=== PATIENT | female | born 1940 | race Caucasian/White ===

== ENCOUNTER 2017-11-11 11:44 | Emergency (ER) | payer MEDICARE ==
--- NOTE | 2017-11-11 12:44 | ED Physician Documentation ---
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 HEENT: Tonsil/Adenoidectomy - Present Medications Home Medications: Ambulatory Orders Medication Instructions Recorded Confirmed Acetaminophen [Tylenol] 2 tab PO DAILY 10/20/15 05/07/16 Levothyroxine [Synthroid] 1 tab PO DAILY 10/20/15 05/07/16 Aspirin 1 tab PO DAILY 05/07/16 05/07/16 Loratadine [Allergy Relief] 10 mg PO DAILY 11/11/17 - Allergies Allergies/Adverse Reactions: Allergies Allergy/AdvReac Type Severity Reaction Status Date / Time ciprofloxacin [From Cipro] Allergy Anaphylaxis Verified 11/11/17 11:53 ciprofloxacin HCl * Allergy Anaphylaxis Verified 11/11/17 11:53 [From Cipro] guaifenesin [From Robitussin] Allergy Hallucinati Verified 11/11/17 11:53 ons levofloxacin [From Levaquin] Allergy Anaphylaxis Verified 11/11/17 11:53 Penicillins Allergy Edema Verified 11/11/17 11:53 procaine HCl * Allergy Unknown Verified 11/11/17 11:53 [From Novocain] vitamin E (d-alpha Allergy Unknown Verified 11/11/17 11:53 tocopherol) [vitamin E] - Social History Does the pt smoke?: No Smoking Status: Never smoker Does the pt drink ETOH?: No Does the pt have substance abuse?: No - Immunizations Immunizations are current?: No Results - Vitals Vitals: Vital Signs - 24 hr 11/11/17 11/11/17 11:47 12:59 Temperature 36.2 C L 36.4 C L Heart Rate 71 72 Respiratory 16 12 Rate Blood Pressure 155/55 H 125/63 O2 Saturation 100 97 Oxygen O2 Source Room air - Labs Labs: Laboratory Tests 11/11/17 11/11/17 13:53 14:00 WBC 9.0 RBC 4.17 L Hgb 13.1 Hct 38.9 MCV 93.4 MCH 31.5 H MCHC 33.7 RDW 12.8 Plt Count 418 MPV 7.6 L Neut # (Auto) 6.6 Lymph # (Auto) 1.1 L [place] # (Auto) 0.9 Eos # (Auto) 0.2 Baso # (Auto) 0.1 Absolute Nucleated RBC 0.00 Nucleated RBC % 0.0 Lactic Acid 1.0
[2017-11-11] MEDS ORDERED: SODIUM CHLORIDE 0.9% 500 ML IV ONE (13:34)
[2017-11-11] MEDS ORDERED: ONDANSETRON 4 MG/2 ML VIAL IVP STA (13:34)
[2017-11-11] MEDS ORDERED: MORPHINE 10 MG/ML VIAL IVP STA (13:37)
[2017-11-11 14:01] LABS: BASOPHILS # (AUTO) 0.1 10^3/uL (0.0-0.1); BASOPHILS % (AUTO) 1.1 %; EOSINOPHILS # (AUTO) 0.2 10^3/uL (0.0-0.7); EOSINOPHILS % (AUTO) 2.3 %; HGB - HEMOGLOBIN 13.1 g/dL (12.0-16.0); LYMPHOCYTES # (AUTO) 1.1 10^3/uL (1.5-3.5); LYMPHOCYTES % (AUTO) 12.8 %; MEAN CORPUSCULAR HEMOGLOBIN 31.5 pg (27.0-31.0); MEAN CORPUSCULAR HGB CONC 33.7 g/dL (32.0-36.0); MEAN CORPUSCULAR VOLUME 93.4 fL (81.0-99.0); MEAN PLATELET VOLUME 7.6 fL (7.9-10.8); MONOCYTES # (AUTO) 0.9 10^3/uL (0.0-1.0); MONOCYTES % (AUTO) 9.8 %; NEUTROPHILS # (AUTO) 6.6 10^3/uL (1.5-6.6); PLT - PLATELET COUNT 418 10^3/uL (130-450); RED BLOOD COUNT 4.17 10^6/uL (4.20-5.40); RED CELL DISTRIBUTION WIDTH 12.8 % (12.0-15.0)
[2017-11-11] MEDS ORDERED: IOPAMIDOL-300 100 ML VIAL ONE (14:01)
[2017-11-11] MEDS ORDERED: IOPAMIDOL-300 100 ML VIAL IVP ONE (14:14)
--- NOTE | 2017-11-11 14:24 | ED Physician Documentation ---
PD HPI ABD PAIN - Stated complaint Stated Complaint: BACK PX/HEADACHE/BLURRY VISION - Chief complaint Chief Complaint: Back Pain - History obtained from History obtained from: Patient - History of Present Illness Timing - onset: How many days ago (several) Timing - duration: Days (several) Timing - details: Gradual onset, Still present, Waxing and waning Quality: Cramping, Aching, Pain Location: RUQ, RLQ Radiation: Right flank Improved by: No: Eating, Vomiting Worsened by: Eating Associated symptoms: Nausea. No: Fever, Vomiting, Diarrhea Similar symptoms before: Has not had sx before Recently seen: Not recently seen Review of Systems Constitutional: denies: Fever, Chills Nose: denies: Rhinorrhea / runny nose, Congestion Throat: denies: Sore throat Cardiac: denies: Chest pain / pressure Respiratory: denies: Cough GI: reports: Abdominal Pain (right sided), Nausea. denies: Vomiting, Constipation, Diarrhea, Bloody / black stool : reports: Frequency. denies: Dysuria Skin: denies: Rash Neurologic: reports: Headache. 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 HEENT: Tonsil/Adenoidectomy - Present Medications Home Medications: Ambulatory Orders Medication Instructions Recorded Confirmed Acetaminophen [Tylenol] 2 tab PO DAILY 10/20/15 05/07/16 Levothyroxine [Synthroid] 1 tab PO DAILY 10/20/15 05/07/16 Aspirin 1 tab PO DAILY 05/07/16 05/07/16 Loratadine [Allergy Relief] 10 mg PO DAILY 11/11/17 - Allergies Allergies/Adverse Reactions: Allergies Allergy/AdvReac Type Severity Reaction Status Date / Time ciprofloxacin [From Cipro] Allergy Anaphylaxis Verified 11/11/17 11:53 ciprofloxacin HCl * Allergy Anaphylaxis Verified 11/11/17 11:53 [From Cipro] guaifenesin [From Robitussin] Allergy Hallucinati Verified 11/11/17 11:53 ons levofloxacin [From Levaquin] Allergy Anaphylaxis Verified 11/11/17 11:53 Penicillins Allergy Edema Verified 11/11/17 11:53 procaine HCl * Allergy Unknown Verified 11/11/17 11:53 [From Novocain] vitamin E (d-alpha Allergy Unknown Verified 11/11/17 11:53 tocopherol) [vitamin E] - Social History Does the pt smoke?: No Smoking Status: Never smoker Does the pt drink ETOH?: No Does the pt have substance abuse?: No - Family History Family history: reports: Non contributory. denies: Aortic aneursym, Aortic dissection - Immunizations Immunizations are current?: No Immunizations: TDAP >10years/unknown - POLST Patient has POLST: No PD ED PE NORMAL - Vitals Vital signs reviewed: Yes - General General: Alert and oriented X 3, No acute distress, Well developed/nourished - HEENT HEENT: Pharynx benign - Neck Neck: Supple, no meningeal sign, No adenopathy - Cardiac Cardiac: RRR, No murmur - Respiratory Respiratory: Clear bilaterally - Abdomen Abdomen: Normal bowel sounds, Soft, Non distended, No organomegaly, Other ( tender right sided mid abdomen with local guarding. No percussion nor rebound tenderness. ) - Female Female : Deferred - Rectal Rectal: Deferred - Back Back: No CVA TTP - Derm Derm: Normal color - Extremities Extremities: No tenderness to palpate, Normal ROM s pain, No edema, No calf tenderness / cord - Neuro Neuro: Alert and oriented X 3, No motor deficit, Normal speech Eye Opening: Spontaneous Motor: Obeys Commands Verbal: Oriented GCS Score: 15 - Psych Psych: Normal mood, Normal affect Results - Vitals Vitals: Oxygen O2 Source Room air - Labs Labs: Laboratory Tests 11/11/17 11/11/17 11/11/17 13:53 14:00 14:28 WBC 9.0 RBC 4.17 L Hgb 13.1 Hct 38.9 MCV 93.4 MCH 31.5 H MCHC 33.7 RDW 12.8 Plt Count 418 MPV 7.6 L Neut # (Auto) 6.6 Lymph # (Auto) 1.1 L [place] # (Auto) 0.9 Eos # (Auto) 0.2 Baso # (Auto) 0.1 Absolute Nucleated RBC 0.00 Nucleated RBC % 0.0 Sodium 138 Potassium 3.9 Chloride 103 Carbon Dioxide 27 Anion Gap 8.0 BUN 19 Creatinine 0.6 Estimated GFR (MDRD) 96 Glucose 84 Lactic Acid 1.0 Calcium 9.3 Magnesium 2.1 Total Bilirubin 0.7 AST 21 ALT 17 Alkaline Phosphatase 57 Total Protein 7.0 Albumin 4.2 Globulin 2.8 Albumin/Globulin Ratio 1.5 Lipase 24 Urine Color Urine Clarity Urine pH Ur Specific [place] Urine Protein Urine Glucose (UA) Urine Ketones Urine Occult Blood Urine Nitrite Urine Bilirubin Urine Urobilinogen Ur Leukocyte Esterase Ur Microscopic Review Urine Culture Comments 11/11/17 14:45 WBC RBC Hgb Hct MCV MCH MCHC RDW Plt Count MPV Neut # (Auto) Lymph # (Auto) [place] # (Auto) Eos # (Auto) Baso # (Auto) Absolute Nucleated RBC Nucleated RBC % Sodium Potassium Chloride Carbon Dioxide Anion Gap BUN Creatinine Estimated GFR (MDRD) Glucose Lactic Acid Calcium Magnesium Total Bilirubin AST ALT Alkaline Phosphatase Total Protein Albumin Globulin Albumin/Globulin Ratio Lipase Urine Color YELLOW Urine Clarity CLEAR Urine pH 7.0 Ur Specific [place] 1.010 Urine Protein NEGATIVE Urine Glucose (UA) NEGATIVE Urine Ketones NEGATIVE Urine Occult Blood NEGATIVE Urine Nitrite NEGATIVE Urine Bilirubin NEGATIVE Urine Urobilinogen 0.2 (NORMAL) Ur Leukocyte Esterase NEGATIVE Ur Microscopic Review NOT INDICATED Urine Culture Comments NOT INDICATED - Rads (name of study) abd/pelvic CT Radiology: Prelim report reviewed (small hiatal hernia; no signficiant abnormal process. ) PD MEDICAL DECISION MAKING - ED course Complexity details: reviewed results, considered differential (s/p appy, so consider cholecystitis, right diverticulitis, kidney stone or infection. ), d/w patient Departure - Departure Disposition: 01 Home, Self Care Clinical Impression: Right sided abdominal pain Condition: Stable Record reviewed to determine appropriate education?: Yes Instructions: ED Abdominal Pain Unkn Cause Follow-Up: Diana Brantley MD [Primary Care Provider] - Comments: There are no signs of significant causes for your pain. It could be muscular from the lifting you have been doing. You may have stretched some adhesions. At this point I would suggest treating with some naproxen or ibuprofen twice daily and add Tylenol 500 mg 4 times a day if needed for pain. Also use a stool softener such as docusate 100 mg daily for the next week. Recheck if not improved over the next few days. Return if you have new symptoms develop such as fever, vomiting, bloody stool, rash, other concerns. Discharge Date/Time: 11/11/17 16:30
[2017-11-11 14:44] LABS: ALBUMIN 4.2 g/dL (3.2-5.5); ALBUMIN/GLOBULIN RATIO 1.5 (1.0-2.2); BILIRUBIN,TOTAL 0.7 mg/dL (0.2-1.0); CALCIUM 9.3 mg/dL (8.5-10.3); CREATININE 0.6 mg/dL (0.4-1.0); MAGNESIUM 2.1 mg/dL (1.7-2.8)
[2017-11-11 14:58] LABS: BILIRUBIN,URINE NEGATIVE (NEGATIVE); GLUCOSE, URINE (UA) NEGATIVE (NEGATIVE); KETONES,URINE (UA) NEGATIVE (NEGATIVE); LEUKOCYTE ESTERASE, URINE NEGATIVE (NEGATIVE); NITRITE,URINE NEGATIVE (NEGATIVE); OCCULT BLOOD,URINE NEGATIVE (NEGATIVE); PROTEIN,URINE NEGATIVE (NEGATIVE); UROBILINOGEN,URINE 0.2 (NORMAL) E.U./dL (NORMAL)
[2017-11-11 15:15] LABS: CLARITY,URINE CLEAR (CLEAR)
--- NOTE | 2017-11-11 15:31 | CT Report ---
EXAM: CT ABDOMEN AND PELVIS EXAM DATE: 11/11/2017 03:20 PM. CLINICAL HISTORY: Right-sided abdominal pain. COMPARISONS: Previous exam of 10/20/2015. TECHNIQUE: Routine helical CT imaging was performed through the abdomen and pelvis. IV contrast: 100 cc of Isovue-300. Enteric contrast: No. Reconstructions: Coronal and sagittal. In accordance with CT protocol optimization, one or more of the following dose reduction techniques w ere utilized for this exam: automated exposure control, adjustment of mA and/or KV based on patient s ize, or use of iterative reconstructive technique. FINDINGS: Lung Bases: Bibasilar scarring versus atelectatic changes present. Stable small hiatal hernia present . Liver: Normal. No masses. Gallbladder/Bile Ducts: Unremarkable. Spleen: Normal. Pancreas: Normal. Adrenal Glands: Normal. Kidneys: Normal. No masses or hydronephrosis. Peritoneal Cavity/Bowel: Normal. No free fluid, free air or adenopathy. No masses or acute inflammato ry process. Appendix not well seen. Pelvic Organs: Uterus and ovaries are surgically absent. Urinary bladder grossly unremarkable. Vasculature: Calcified atherosclerotic changes seen, without evidence of aneurysm. Bones: Mild bony degenerative changes seen, with osteopenia. Other: None. IMPRESSION: Stable small hiatal hernia with bibasilar scarring at the lung bases, otherwise unremarka ble exam. [facility] Referring Provider Line: [phone] SITE ID: [id number]
[2017-11-11 15:35] VITALS: BP 128/58
[2017-11-11] MEDS ORDERED: KETOROLAC 60 MG/2 ML VIAL IVP STA (16:02)
== END 2017-11-11 16:30 | disposition home or self-care (01) ==
LOC: ED 11:44
DX: R10.31 Right lower quadrant pain (principal); R51 Headache; H53.8 Other visual disturbances; E03.9 Hypothyroidism, unspecified; K21.9 Gastro-esophageal reflux disease without esophagitis; Z79.82 Long term (current) use of aspirin
CPT/HCPCS: 36415; 74177; 80053; 81003; 83605; 83690; 83735; 85025; 96361; 96374; 96375; 99283; Q9967; 81001; 87086

== ENCOUNTER 2018-07-25 22:09 | Emergency (ER) | payer MEDICARE ==
--- NOTE | 2018-07-25 23:17 | ED Physician Documentation ---
PD HPI ABD PAIN - Stated complaint Stated Complaint: ABD PX - Chief complaint Chief Complaint: Abd Pain - History obtained from History obtained from: Patient - History of Present Illness Timing - onset: How many days ago (2) Timing - details: Intermittant Pain level now: 7 Quality: Pain Location: RUQ, Epigastric Improved by: Laying still Worsened by: Moving. No: Eating Associated symptoms: No: Fever, Nausea, Vomiting Similar symptoms before: Has not had sx before Recently seen: Not recently seen - Additional information Additional information: c/o RUQ and epigastric pain past 2-3 nights but worse tonight, described as "jabbing". Also c/o several weeks of right shoulder pain without injury, worse with movement Review of Systems Constitutional: denies: Fever, Chills, Sweats Cardiac: reports: Reviewed and negative Respiratory: reports: Reviewed and negative GI: reports: Abdominal Pain. 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 HEENT: Tonsil/Adenoidectomy - Present Medications Home Medications: Ambulatory Orders Medication Instructions Recorded Confirmed Acetaminophen [Tylenol] 2 tab PO DAILY 10/20/15 05/07/16 Levothyroxine [Synthroid] 1 tab PO DAILY 10/20/15 05/07/16 Aspirin 1 tab PO DAILY 05/07/16 05/07/16 Loratadine [Allergy Relief] 10 mg PO DAILY 11/11/17 - Allergies Allergies/Adverse Reactions: Allergies Allergy/AdvReac Type Severity Reaction Status Date / Time ciprofloxacin [From Cipro] Allergy Anaphylaxis Verified 11/11/17 11:53 ciprofloxacin HCl * Allergy Anaphylaxis Verified 11/11/17 11:53 [From Cipro] guaifenesin [From Robitussin] Allergy Hallucinati Verified 11/11/17 11:53 ons levofloxacin [From Levaquin] Allergy Anaphylaxis Verified 11/11/17 11:53 Penicillins Allergy Edema Verified 11/11/17 11:53 procaine HCl * Allergy Unknown Verified 11/11/17 11:53 [From Novocain] vitamin E (d-alpha Allergy Unknown Verified 11/11/17 11:53 tocopherol) [vitamin E] - Social History Does the pt smoke?: No Smoking Status: Never smoker Does the pt drink ETOH?: No Does the pt have substance abuse?: No - Immunizations Immunizations are current?: No Immunizations: TDAP >10years/unknown - POLST Patient has POLST: No PD ED PE NORMAL - Vitals Vital signs reviewed: Yes - General General: Alert and oriented X 3, No acute distress, Well developed/nourished - Cardiac Cardiac: RRR, No murmur - Respiratory Respiratory: No respiratory distress, Clear bilaterally - Abdomen Abdomen: Soft, Non distended, Other (mild tenderness in RUQ and epigastrium without rebound or guarding) - Derm Derm: Normal color, Warm and dry, No rash - Extremities Extremities: No deformity, No tenderness to palpate, Normal ROM s pain (right shoulder has FROM but increased pain with extremes of abduction, rotation), No edema Results - Vitals Vitals: Vital Signs - 24 hr 07/25/18 07/26/18 22:15 02:57 Temperature 37.3 C 36.4 C L Heart Rate 77 71 Respiratory 18 16 Rate Blood Pressure 133/57 H 108/87 H O2 Saturation 97 95 Oxygen O2 Source Room air - Labs Labs: Laboratory Tests 07/25/18 07/25/18 23:55 23:55 WBC 7.8 RBC 4.22 Hgb 13.6 Hct 39.9 MCV 94.6 MCH 32.2 H MCHC 34.0 RDW 12.5 Plt Count 448 MPV 7.4 L Neut # (Auto) 5.2 Lymph # (Auto) 1.3 L [place] # (Auto) 0.9 Eos # (Auto) 0.4 Baso # (Auto) 0.0 Absolute Nucleated RBC 0.00 Nucleated RBC % 0.1 Sodium 137 Potassium 3.5 Chloride 100 L Carbon Dioxide 30 Anion Gap 7.0 BUN 13 Creatinine 0.6 Estimated GFR (MDRD) 96 Glucose 99 Calcium 10.1 Total Bilirubin 0.7 AST 23 ALT 19 Alkaline Phosphatase 62 Total Protein 7.3 Albumin 4.5 Globulin 2.8 Albumin/Globulin Ratio 1.6 Lipase 41 - Rads (name of study) RUQ US Radiology: Prelim report reviewed, See rad report right shoulder xrays Radiology: Prelim report reviewed, See rad report PD MEDICAL DECISION MAKING - ED course Complexity details: reviewed results, re-evaluated patient, considered differential, d/w patient ED course: unremarkable blood tests and RUQ US. right shoulder xray s/o calcific tendinitis. Patient is in NAD on reevaluation, results discussed and patient is comfortable with d/c home, return if worse. Instructed to contact PMD to discuss her right shoulder pain as well as consideration of further testing for her abdominal pain. Departure - Departure Disposition: 01 Home, Self Care Clinical Impression: Calcific tendinitis of right shoulder Abdominal pain Qualifiers: Abdominal location: right upper quadrant Qualified Code(s): R10.11 - Right upper quadrant pain Condition: Good Instructions: ED Abdominal Pain Unkn Cause, ED Tendinitis Calcific Follow-Up: Diana Brantley MD [Primary Care Provider] - Discharge Date/Time: 07/26/18 03:48
[2018-07-26 00:12] LABS: BASOPHILS % (AUTO) 0.5 %; EOSINOPHILS # (AUTO) 0.4 10^3/uL (0.0-0.7); EOSINOPHILS % (AUTO) 5.7 %; HGB - HEMOGLOBIN 13.6 g/dL (12.0-16.0); LYMPHOCYTES # (AUTO) 1.3 10^3/uL (1.5-3.5); LYMPHOCYTES % (AUTO) 16.5 %; MEAN CORPUSCULAR HEMOGLOBIN 32.2 pg (27.0-31.0); MEAN CORPUSCULAR VOLUME 94.6 fL (81.0-99.0); MEAN PLATELET VOLUME 7.4 fL (7.9-10.8); MONOCYTES # (AUTO) 0.9 10^3/uL (0.0-1.0); MONOCYTES % (AUTO) 11.1 %; NEUTROPHILS # (AUTO) 5.2 10^3/uL (1.5-6.6); NEUTROPHILS % (AUTO) 66.2 %; PLT - PLATELET COUNT 448 10^3/uL (130-450); RED BLOOD COUNT 4.22 10^6/uL (4.20-5.40); RED CELL DISTRIBUTION WIDTH 12.5 % (12.0-15.0); WHITE BLOOD COUNT 7.8 x10^3/uL (4.8-10.8)
[2018-07-26 00:24] LABS: ALBUMIN 4.5 g/dL (3.2-5.5); ALBUMIN/GLOBULIN RATIO 1.6 (1.0-2.2); BILIRUBIN,TOTAL 0.7 mg/dL (0.2-1.0); CALCIUM 10.1 mg/dL (8.5-10.3); CREATININE 0.6 mg/dL (0.4-1.0); TOTAL PROTEIN 7.3 g/dL (6.7-8.2)
--- NOTE | 2018-07-26 01:36 | Ultrasound Report ---
Reason: abd. pain Procedure Date: 07/26/2018 Accession Number: [id number] / [id number] Procedure: US - Abdomen Limited CPT Code: FULL RESULT: EXAM: ABDOMEN ULTRASOUND LIMITED, RUQ EXAM DATE: 07/26/2018 01:10 AM. CLINICAL HISTORY: Abd. pain. COMPARISON: None. TECHNIQUE: Real-time scanning was performed with static images obtained. FINDINGS: Liver: Liver parenchyma is heterogeneous and there is increased echogenicity compatible with fatty infiltration. 14.2 cm. Main portal vein flow: Hepatopetal. Gallbladder: There are no discernible gallstones. Gallbladder wall measures 1.3 mm. There is some tenderness over the gallbladder. No pericholecystic fluid. Biliary System: CBD measures 4.1 mm. No intrahepatic or extrahepatic ductal dilatation. Other: Right kidney measures 9.3 cm. IMPRESSION: No evidence for cholelithiasis. [facility]
--- NOTE | 2018-07-26 02:03 | XRAY Report ---
Reason: pain, tenderness Procedure Date: 07/26/2018 Accession Number: [id number] / [id number] Procedure: XR - Shoulder 3 View RT CPT Code: FULL RESULT: EXAM: RIGHT SHOULDER RADIOGRAPHY EXAM DATE: 07/26/2018 01:39 AM. CLINICAL HISTORY: Pain, tenderness. COMPARISON: SHOULDER 3 VIEW BILAT 04/12/2017 1:55 PM. TECHNIQUE: 3 views. FINDINGS: Bones: Normal. No fracture or bone lesion. Joints: There is some degenerative changes at the glenohumeral joint and the AC joint. Soft tissues: There is an aggregation of soft tissue calcifications in the region of the supraspinatus tendon compatible with calcific tendinitis. IMPRESSION: 1. Early degenerative changes at the glenohumeral joint and AC joint. 2. Supraspinatus calcific tendinitis. [facility]
[2018-07-26 02:58] VITALS: BP 108/87
== END 2018-07-26 03:48 | disposition home or self-care (01) ==
LOC: ED 22:09
DX: M75.31 Calcific tendinitis of right shoulder (principal); R10.11 Right upper quadrant pain; E03.9 Hypothyroidism, unspecified; Z79.82 Long term (current) use of aspirin
CPT/HCPCS: 36415; 76705; 80053; 83690; 85025; 99283

== ENCOUNTER 2018-09-16 10:49 | Emergency (ER) | payer MEDICARE ==
[2018-09-16] MEDS ORDERED: IOVERSOL 320 100 ML VIAL IVP ONE ×3 (10:50→16:59)
[2018-09-16] MEDS ORDERED: KETOROLAC 30 MG/ML VIAL IVP STA (13:08)
--- NOTE | 2018-09-16 13:11 | ED Physician Documentation ---
PD HPI HEENT - Stated complaint Stated Complaint: JAW PX - Chief complaint Chief Complaint: Heent - History obtained from History obtained from: Patient - History of Present Illness Timing - onset: Other (For the last several months she has had intermittent left-sided jaw and facial pain. It is fleeting. For the last day she has had impressive more constant pain with facial swelling on the left. She is unable to eat due to the pain. She took Tylenol at home which helped slightly. She denies fevers. 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 Psych: Anxiety Musculoskeletal: Chronic back pain Derm: None - Past Surgical History Past Surgical History: Yes 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, 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 HEENT: Tonsil/Adenoidectomy - Present Medications Home Medications: Ambulatory Orders Medication Instructions Recorded Confirmed Acetaminophen [Tylenol] 2 tab PO DAILY 10/20/15 05/07/16 Levothyroxine [Synthroid] 1 tab PO DAILY 10/20/15 05/07/16 RX: Aspirin 1 tab PO DAILY 05/07/16 05/07/16 RX: Loratadine [Allergy Relief] 10 mg PO DAILY 11/11/17 RX: Clindamycin HCl [Clindamycin 300 mg PO Q6H #40 capsule 09/16/18 300MG CAP] - Allergies Allergies/Adverse Reactions: Allergies Allergy/AdvReac Type Severity Reaction Status Date / Time ciprofloxacin [From Cipro] Allergy Anaphylaxis Verified 09/16/18 11:00 ciprofloxacin HCl * Allergy Anaphylaxis Verified 09/16/18 11:00 [From Cipro] guaifenesin [From Robitussin] Allergy Hallucinati Verified 09/16/18 11:00 ons levofloxacin [From Levaquin] Allergy Anaphylaxis Verified 09/16/18 11:00 Penicillins Allergy Edema Verified 09/16/18 11:00 procaine HCl * Allergy Unknown Verified 09/16/18 11:00 [From Novocain] vitamin E (d-alpha Allergy Unknown Verified 09/16/18 11:00 tocopherol) [vitamin E] - Social History Does the pt smoke?: No Smoking Status: Never smoker Does the pt drink ETOH?: No Does the pt have substance abuse?: No - Family History Family history: reports: Non contributory - Immunizations Immunizations are current?: No Immunizations: TDAP >10years/unknown - POLST Patient has POLST: No PD ED PE NORMAL - Vitals Vital signs reviewed: Yes - General General: Alert and oriented X 3, No acute distress - HEENT HEENT: PERRL, EOMI, Ears normal, Other (She has impressive facial swelling that seems to be located mostly over the left parotid but comes into the left infra- auricular and preauricular areas and down over the angle of the jaw. She has some submental tenderness but no obvious swelling there. There is no sublingual edema, and I do not appreciate any foreign bodies or lesions in the salivary gland. She is edentulous. She has mild trismus.) - Neck Neck: Supple, no meningeal sign, No bony TTP - Cardiac Cardiac: RRR, No murmur - Respiratory Respiratory: No respiratory distress, Clear bilaterally - Abdomen Abdomen: Non tender - Back Back: No CVA TTP, No spinal TTP - Derm Derm: Normal color, Warm and dry - Extremities Extremities: No edema, No calf tenderness / cord - Neuro Neuro: Alert and oriented X 3, Normal speech - Psych Psych: Normal mood, Normal affect Results - Vitals Vitals: Vital Signs - 24 hr 09/16/18 09/16/18 09/16/18 10:56 12:56 15:44 Temperature 37.0 C 37.3 C 36.6 C Heart Rate 80 73 98 Respiratory 14 16 16 Rate Blood Pressure 134/81 H 121/50 L 126/56 L O2 Saturation 98 98 98 Oxygen O2 Source Room air - Labs Labs: Laboratory Tests 09/16/18 09/16/18 14:05 14:05 WBC 16.3 H RBC 4.18 L Hgb 12.9 Hct 38.8 MCV 92.8 MCH 30.9 MCHC 33.3 RDW 12.9 Plt Count 392 MPV 7.9 Neut # (Auto) 14.0 H Lymph # (Auto) 0.9 L [place] # (Auto) 1.2 H Eos # (Auto) 0.1 Baso # (Auto) 0.1 Absolute Nucleated RBC 0.00 Nucleated RBC % 0.0 Sodium 135 Potassium 3.6 Chloride 97 L Carbon Dioxide 27 Anion Gap 11.0 BUN 12 Creatinine 0.6 Estimated GFR (MDRD) 96 Glucose 97 Calcium 9.7 Total Bilirubin 1.3 H AST 19 ALT 14 Alkaline Phosphatase 50 Total Protein 7.1 Albumin 4.3 Globulin 2.8 Albumin/Globulin Ratio 1.5 Lipase 20 L - Rads (name of study) CT Face Radiology: EMP read contemporaneously (Enlargement and inflammatory reaction of the left parotid gland and to assess lesser extent submandibular gland consistent with sialoadenitis without obvious stone or focally dilated duct.) PD MEDICAL DECISION MAKING - ED course ED course: This is an 78-year-old woman who presents with acute and impressive left-sided facial swelling. She is edentulous. Workup demonstrates parotitis and sialoadenitis which is treated with antibiotics and follow-up with ENT. Departure - Departure Disposition: 01 Home, Self Care Clinical Impression: Parotitis Condition: Good Record reviewed to determine appropriate education?: Yes Instructions: ED Submandibular Gland Infec Prescriptions: RX: Clindamycin HCl [Clindamycin 300MG CAP] 300 mg PO Q6H #40 capsule Comments: As discussed, you can use lemon heads which are a candy to increase saliva production to flush out the ducts. You should follow-up with an ear nose and throat doctor, call [phone] for an appointment. Return if worse. Discharge Date/Time: 09/16/18 15:57
[2018-09-16 14:26] LABS: BASOPHILS # (AUTO) 0.1 10^3/uL (0.0-0.1); BASOPHILS % (AUTO) 0.5 %; EOSINOPHILS # (AUTO) 0.1 10^3/uL (0.0-0.7); EOSINOPHILS % (AUTO) 0.6 %; HGB - HEMOGLOBIN 12.9 g/dL (12.0-16.0); LYMPHOCYTES # (AUTO) 0.9 10^3/uL (1.5-3.5); LYMPHOCYTES % (AUTO) 5.5 %; MEAN CORPUSCULAR HEMOGLOBIN 30.9 pg (27.0-31.0); MEAN CORPUSCULAR HGB CONC 33.3 g/dL (32.0-36.0); MEAN CORPUSCULAR VOLUME 92.8 fL (81.0-99.0); MEAN PLATELET VOLUME 7.9 fL (7.9-10.8); MONOCYTES # (AUTO) 1.2 10^3/uL (0.0-1.0); MONOCYTES % (AUTO) 7.6 %; NEUTROPHILS % (AUTO) 85.8 %; PLT - PLATELET COUNT 392 10^3/uL (130-450); RED BLOOD COUNT 4.18 10^6/uL (4.20-5.40); RED CELL DISTRIBUTION WIDTH 12.9 % (12.0-15.0); WHITE BLOOD COUNT 16.3 x10^3/uL (4.8-10.8)
[2018-09-16 14:46] LABS: ALBUMIN 4.3 g/dL (3.2-5.5); ALBUMIN/GLOBULIN RATIO 1.5 (1.0-2.2); BILIRUBIN,TOTAL 1.3 mg/dL (0.2-1.0); CALCIUM 9.7 mg/dL (8.5-10.3); CREATININE 0.6 mg/dL (0.4-1.0); TOTAL PROTEIN 7.1 g/dL (6.7-8.2)
--- NOTE | 2018-09-16 15:19 | CT Report ---
Reason: L facial swelling, IV contrast Procedure Date: 09/16/2018 Accession Number: [id number] / [id number] Procedure: CT - MAXILLOFACIAL W CPT Code: FULL RESULT: EXAM: CT MAXILLOFACIAL WITH CONTRAST EXAM DATE: 09/16/2018 03:06 PM. CLINICAL HISTORY: 78-year-old woman with left facial swelling. COMPARISONS: HEAD W/O 10/20/2015 4:34 PM. TECHNIQUE: Thin-section axial images were acquired of the face after administration of intravenous contrast. Post-processing: Coronal and sagittal reformats. Other: None. IV contrast: 80 cc Optiray 320. In accordance with CT protocol optimization, one or more of the following dose reduction techniques were utilized for this exam: automated exposure control, adjustment of mA and/or KV based on patient size, or use of iterative reconstructive technique. FINDINGS: Paranasal Sinuses: Clear. No air-fluid levels. No fractures. Nasal Cavity and Bones: Clear. No fractures. Mandible: No fracture. Temporomandibular joints are in normal alignment. Teeth: The patient is edentulous. Skull Base and Mastoid Air Cells: No fractures. Mastoid air cells are clear. Orbits: Status post bilateral lens replacement surgery. Globes are otherwise intact and normal in shape. Optic nerves are symmetric and normal in caliber bilaterally. Intraconal and extraconal spaces are normal without mass lesion or fat stranding. Soft Tissues: The left parotid gland is markedly enlarged and enhancing. No evidence of sialolith, focally dilated duct, or underlying mass lesion. There is prominent overlying fat stranding. The left submandibular gland is also mildly enlarged and demonstrates increased enhancement. Fat stranding also overlies the left submandibular gland. Visualized Intracranial Contents: Unremarkable. IMPRESSION: 1. Enlargement and inflammatory reaction of the left parotid gland and, to a lesser extent, submandibular gland, most consistent with sialoadenitis. No evidence of sialolith, focally dilated duct, or underlying mass lesion. RADIA
[2018-09-16 15:47] VITALS: BP 126/56
== END 2018-09-16 15:57 | disposition home or self-care (01) ==
LOC: ED 10:49
DX: K11.20 Sialoadenitis, unspecified (principal); E03.9 Hypothyroidism, unspecified; Z79.82 Long term (current) use of aspirin
CPT/HCPCS: 36415; 70487; 80053; 83690; 85025; 96374; 99283; Q9967

== ENCOUNTER 2018-09-24 12:12 | Emergency (ER) | payer MEDICARE ==
[2018-09-24 12:22] VITALS: BP 105/68
--- NOTE | 2018-09-24 12:44 | ED Physician Documentation ---
PD HPI SKIN - Stated complaint Stated Complaint: MED REACTION/RASH ALL OVER - Chief complaint Chief Complaint: Wound - History obtained from History obtained from: Patient - History of Present Illness Timing - onset: Last night Timing - duration: Hours Timing - details: Abrupt onset, Still present Location: Bodywide Quality / character: Itchy, Discolored, Raised Improved by: Benadryl Associated symptoms: No: Fever, N/V/D Contributing factors: Exposed to medication Similar symptoms before: Diagnosis (drug rash) Recently seen: Emergency Dept - Additional information Additional information: 78-year-old female who was recently treated in the emergency department for sialoadenitis with clindamycin. She was on her seventh day of antibiotic when she developed a rash on her anterior chest. She has developed it now on the rest of her body. She has not had any shortness of breath, she has taken some Benadryl with some help. She has had prior reactions to medications. 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: Other : None HEENT: Other Psych: Anxiety Musculoskeletal: Chronic back pain Derm: None - Past Surgical History Past Surgical History: Yes 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, Colonoscopy /IN SERVICE EDUCATOR: Hysterectomy HEENT: Tonsil/Adenoidectomy - Present Medications Home Medications: Ambulatory Orders Medication Instructions Recorded Confirmed Acetaminophen [Tylenol] 2 tab PO DAILY 10/20/15 05/07/16 Levothyroxine [Synthroid] 1 tab PO DAILY 10/20/15 05/07/16 Aspirin 1 tab PO DAILY 05/07/16 05/07/16 Loratadine [Allergy Relief] 10 mg PO DAILY 11/11/17 Clindamycin HCl [Clindamycin 300MG 300 mg PO Q6H #40 capsule 09/16/18 CAP] predniSONE [Prednisone] 40 mg PO DAILY #10 tablet 09/24/18 - Allergies Allergies/Adverse Reactions: Allergies Allergy/AdvReac Type Severity Reaction Status Date / Time ciprofloxacin [From Cipro] Allergy Anaphylaxis Verified 09/16/18 11:00 ciprofloxacin HCl * Allergy Anaphylaxis Verified 09/16/18 11:00 [From Cipro] clindamycin Allergy Rash Verified 09/24/18 12:21 guaifenesin [From Robitussin] Allergy Hallucinati Verified 09/16/18 11:00 ons levofloxacin [From Levaquin] Allergy Anaphylaxis Verified 09/16/18 11:00 Penicillins Allergy Edema Verified 09/16/18 11:00 procaine HCl * Allergy Unknown Verified 09/16/18 11:00 [From Novocain] vitamin E (d-alpha Allergy Unknown Verified 09/16/18 11:00 tocopherol) [vitamin E] - Social History Does the pt smoke?: No Smoking Status: Never smoker Does the pt drink ETOH?: No Does the pt have substance abuse?: No - Immunizations Immunizations are current?: No Immunizations: TDAP >10years/unknown - POLST Patient has POLST: No PD ED PE NORMAL - Vitals Vital signs reviewed: Yes (normal ) - General General: Alert and oriented X 3, No acute distress, Well developed/nourished - HEENT HEENT: Atraumatic, PERRL, EOMI, Other (There is no significant swelling to the left face. There is mild point tenderness to the angle of the jaw on the left side. ) - Neck Neck: Supple, no meningeal sign, No bony TTP - Cardiac Cardiac: RRR, No murmur - Respiratory Respiratory: No respiratory distress, Clear bilaterally - Abdomen Abdomen: Soft, Non tender - Back Back: No CVA TTP, No spinal TTP - Derm Derm: Normal color, Warm and dry, Other (There is an urticarial rash over the trunk and extremtities. ) - Extremities Extremities: No deformity, No edema - Neuro Neuro: No motor deficit, No sensory deficit Eye Opening: Spontaneous Motor: Obeys Commands Verbal: Oriented GCS Score: 15 - Psych Psych: Normal mood, Normal affect Results - Vitals Vitals: Vital Signs - 24 hr 09/24/18 12:18 Temperature 37.0 C Heart Rate 74 Respiratory 18 Rate Blood Pressure 105/68 O2 Saturation 99 Oxygen O2 Source Room air PD MEDICAL DECISION MAKING - ED course Complexity details: reviewed old records, reviewed results, re-evaluated patient, considered differential, d/w patient ED course: 78-year-old female with an urticarial skin rash after starting clindamycin appears to have a drug reaction. She appears to have cleared her infection in the left parotid gland. We will place the patient on a short course of prednisone and have her take Benadryl for the next 2 days and she will follow-up with Dr. Brantley. She does have follow-up with her dentist as well for evaluation of her dentures. Departure - Departure Disposition: 01 Home, Self Care Clinical Impression: Allergic drug rash Condition: Stable Instructions: ED Drug React Allergic Follow-Up: Diana Brantley MD [Primary Care Provider] - Prescriptions: predniSONE [Prednisone] 40 mg PO DAILY #10 tablet Comments: Today it appears you have had an allergic reaction to clindamycin. Discontinue the use of this medication and take Benadryl 25-50 mg every 6 hours for the next 2 days. In addition take the prednisone as prescribed 40 mg daily for 5 days.
== END 2018-09-24 12:52 | disposition home or self-care (01) ==
LOC: ED 12:12
DX: L27.0 Generalized skin eruption due to drugs and medicaments taken internally (principal)
CPT/HCPCS: 99283

== ENCOUNTER 2019-04-03 12:16 | Outpatient (CLI) | payer MEDICARE ==
[2019-04-03 12:36] LABS: BASOPHILS # (AUTO) 0.1 10^3/uL (0.0-0.1); EOSINOPHILS # (AUTO) 0.1 10^3/uL (0.0-0.7); EOSINOPHILS % (AUTO) 1.6 %; HGB - HEMOGLOBIN 13.8 g/dL (12.0-16.0); LYMPHOCYTES # (AUTO) 0.9 10^3/uL (1.5-3.5); LYMPHOCYTES % (AUTO) 11.6 %; MEAN CORPUSCULAR HEMOGLOBIN 31.2 pg (27.0-31.0); MEAN CORPUSCULAR HGB CONC 32.9 g/dL (32.0-36.0); MEAN CORPUSCULAR VOLUME 94.6 fL (81.0-99.0); MEAN PLATELET VOLUME 9.3 fL (7.9-10.8); MONOCYTES # (AUTO) 0.7 10^3/uL (0.0-1.0); MONOCYTES % (AUTO) 8.7 %; NEUTROPHILS # (AUTO) 5.9 10^3/uL (1.5-6.6); NEUTROPHILS % (AUTO) 76.7 %; PLT - PLATELET COUNT 408 10^3/uL (130-450); RED BLOOD COUNT 4.43 10^6/uL (4.20-5.40); RED CELL DISTRIBUTION WIDTH 13.1 % (12.0-15.0); WHITE BLOOD COUNT 7.7 x10^3/uL (4.8-10.8)
[2019-04-03 12:48] LABS: ALBUMIN 4.8 g/dL (3.2-5.5); ALBUMIN/GLOBULIN RATIO 1.8 (1.0-2.2); CALCIUM 9.7 mg/dL (8.5-10.3); CREATININE 0.6 mg/dL (0.4-1.0); TOTAL PROTEIN 7.5 g/dL (6.7-8.2)
[2019-04-03 13:03] LABS: HB2 TOTAL 14.4 g/dL; HEMOGLOBIN A1C 0.55 g/dL; HEMOGLOBIN A1C % 5.6 % (4.6-6.2)
[2019-04-03 13:05] LABS: THYROID STIMULATING HORMONE 2.69 uIU/mL (0.34-5.60)
== END 2019-04-03 12:17 | disposition home or self-care (01) ==
LOC: LAB 12:16
PROVIDERS: ATTEND Internal Medicine
DX: E03.9 Hypothyroidism, unspecified (principal); R20.2 Paresthesia of skin; Z79.899 Other long term (current) drug therapy; J38.2 Nodules of vocal cords
CPT/HCPCS: 36415; 80053; 82607; 83036; 84443; 85025

== ENCOUNTER 2020-03-08 15:09 | Outpatient (CLI) | payer MEDICARE ==
--- NOTE | 2020-03-08 16:08 | XRAY Report ---
PROCEDURE: Hip w/Pelvis 2-3V RT INDICATIONS: R HIP PAIN TECHNIQUE: AP pelvis with lateral view(s) of the bilateral hip(s). COMPARISON: None. FINDINGS: Bones: No fractures or dislocations. Pelvic ring appears intact. No suspicious bony lesions. Ther e is mild bilateral hip joint space narrowing. Soft tissues: The visualized bowel gas pattern is normal. No suspicious soft tissue calcifications. IMPRESSION: Mild hip osteoarthritis. Reviewed by: Amy Yan MD on 03/08/2020 4:07 PM PDT Approved by: Amy Yan MD on 03/08/2020 4:07 PM PDT Station ID: [id number]
== END 2020-03-08 15:10 | disposition home or self-care (01) ==
LOC: DI 15:09
PROVIDERS: ATTEND Internal Medicine
DX: M16.11 Unilateral primary osteoarthritis, right hip (principal)

== ENCOUNTER 2020-04-22 12:56 | Outpatient (CLI) | payer MEDICARE ==
[2020-04-22] MEDS ORDERED: GADOBUTROL 7.5 MMOL/7.5 ML VIAL ONE (13:28)
[2020-04-22] MEDS ORDERED: GADOBUTROL 7.5 MMOL/7.5 ML VIAL IVP ONE (14:34)
--- NOTE | 2020-04-22 16:29 | MRI Report ---
PROCEDURE: Pelvis W/WO INDICATIONS: RT HIP PAIN, RT INGUINAL LYMPHADENOPATHY CONTRAST: IV CONTRAST: Gadavist ml: 5 TECHNIQUE: Coronal ultra fast SE, sagittal breath-hold T2 FSE; axial T1 FSE with and without fat saturation thro ugh the pelvis. Optional long- and short-axis uterine nonbreath-hold T2 FSE through the uterus. Sag ittal or axial dynamic ultra fast GE during administration of contrast. Post-contrast axial or coron al ultra fast GE / 2-D spoiled GE with fat saturation from the iliac crests to the symphysis. Option al diffusion weighted imaging and ADC may be performed. COMPARISON: Hip radiographs 03/08/2020, CT lumbar spine 01/17/2020 FINDINGS: Image quality: Excellent. Bones: Minimally displaced fractures are seen in the right superior and inferior pubic rami with asso ciated osseous edema and surrounding soft tissue edema. Additional nondisplaced fractures are seen in the right and left lateral portions of the sacrum. There is also mild trabecular bone injury in the iliac crests adjacent to the sacroiliac joints. Mild depression of the superior endplate of the L5 ve rtebra is new when compared to the CT from 01/17/2020, with minimal increased STIR signal, likely subac darvin to chronic. Pelvic organs: Uterus is surgically absent. No adnexal mass is seen. The bladder is normal in size. The rectum appears normal. The included distal bowel loops appear normal. Nodes and vessels: No pelvic or inguinal adenopathy by size criteria. Iliac vessels are normal in s ize. Soft tissues: No inguinal hernias. Edema is seen within the right proximal adductor musculature and short external rotators adjacent to the pelvic fractures. There is mild generalized fatty infiltratio n of the musculature surrounding the hips. There is increased signal intensity at the origin of the i ndirect head of the right rectus femoris muscle that is suspicious for a low-grade tear. Trace trocha nteric bursal effusions are seen bilaterally. No abnormal masslike soft tissue enhancement. IMPRESSION: 1. Minimally displaced fractures of the right superior and inferior pubic rami with surrounding osse ous and muscular edema. 2. Nondisplaced fractures of the right and left sacral ala with associated osseous edema. Mild edema is seen in the adjacent portions of the posterior iliac bones. 3. Minimally depressed superior endplate compression fracture of the L5 vertebra is new when compare d to the CT from 01/17/2020 with trace edema, likely subacute to chronic nature. 4. Increased signal at the origin of the indirect head of the right rectus femoris muscle is suspici ous for a low-grade partial intrasubstance tear. Reviewed by: Bin Basilio MD on 04/22/2020 4:28 PM PST Approved by: Bin Basilio MD on 04/22/2020 4:28 PM PST Station ID: [id number]
== END 2020-04-22 12:57 | disposition home or self-care (01) ==
LOC: DI 12:56
PROVIDERS: ATTEND Internal Medicine
DX: S32.591A Other specified fracture of right pubis, initial encounter for closed fracture (principal); S32.10XA Unspecified fracture of sacrum, initial encounter for closed fracture; S32.050A Wedge compression fracture of fifth lumbar vertebra, initial encounter for closed fracture; R93.6 Abnormal findings on diagnostic imaging of limbs
CPT/HCPCS: 72197; A9585

== ENCOUNTER 2020-05-04 07:00 | Outpatient (CLI) | payer MEDICARE | END 2020-05-04 23:59 | disposition home or self-care (01) | LOC: COV 07:00 | PROVIDERS: ATTEND Internal Medicine | DX: Z20.828 Contact with and (suspected) exposure to other viral communicable diseases (principal) ==

== ENCOUNTER 2020-12-07 20:04 | Outpatient (CLI) | payer MEDICARE | END 2020-12-07 20:05 | disposition critical access hospital (66) | LOC: EMS 20:04 | DX: R05 Cough (principal); K11.7 Disturbances of salivary secretion; R07.9 Chest pain, unspecified | CPT/HCPCS: A0425; A0429 ==

== ENCOUNTER 2020-12-07 20:10 | Emergency (ER) | payer MEDICARE ==
--- NOTE | 2020-12-07 20:27 | ED Physician Documentation ---
History of Present Illness - Stated complaint Stated Complaint: chest pressure - Additonal information Additional information: 80-year-old female presents to the emergency department for evaluation of a choking episode. She was eating some salmon without known bones and began to cough and choke. She feels like she was not able to swallow appropriately and was drooling for quite some time. No history of similar in the past. At this time she is phonating normally and maintaining her airway. No hypoxia. But she feels like something is still caught in her lower esophagus. 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: Other : None HEENT: Other Psych: Anxiety Musculoskeletal: Chronic back pain Derm: None - Past Surgical History Past Surgical History: Yes 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, Colonoscopy /APRON MAN: Hysterectomy HEENT: Tonsil/Adenoidectomy - Present Medications Home Medications: Ambulatory Orders Medication Instructions Recorded Confirmed Acetaminophen [Tylenol] 2 tab PO DAILY 10/20/15 05/07/16 Levothyroxine [Synthroid] 1 tab PO DAILY 10/20/15 05/07/16 Aspirin 1 tab PO DAILY 05/07/16 05/07/16 Loratadine [Allergy Relief] 10 mg PO DAILY 11/11/17 Clindamycin HCl [Clindamycin 300MG 300 mg PO Q6H #40 capsule 09/16/18 CAP] predniSONE [Prednisone] 40 mg PO DAILY #10 tablet 09/24/18 Hydrocodone/Acetaminophen 1 - 2 tab PO Q6H PRN #15 tablet 01/17/20 [Hydrocodone-Acetamin 5-325 mg] - Allergies Allergies/Adverse Reactions: Allergies Allergy/AdvReac Type Severity Reaction Status Date / Time ciprofloxacin [From Cipro] Allergy Anaphylaxis Verified 01/17/20 13:26 ciprofloxacin HCl * Allergy Anaphylaxis Verified 01/17/20 13:26 [From Cipro] clindamycin Allergy Rash Verified 01/17/20 13:26 guaifenesin [From Robitussin] Allergy Hallucinati Verified 01/17/20 13:26 ons levofloxacin [From Levaquin] Allergy Anaphylaxis Verified 01/17/20 13:26 Penicillins Allergy Edema Verified 01/17/20 13:26 procaine HCl * Allergy Unknown Verified 01/17/20 13:26 [From Novocain] vitamin E (d-alpha Allergy Unknown Verified 01/17/20 13:26 tocopherol) [vitamin E] - Social History Does the pt smoke?: No Smoking Status: Never smoker Does the pt drink ETOH?: No Does the pt have substance abuse?: No - Immunizations Immunizations are current?: No Immunizations: TDAP >10years/unknown - POLST Patient has POLST: No PD ED PE EXPANDED - General General: Alert, No acute distress, Well developed/nourished - Neck Neck: Supple w/out meningeal sx. No: Adenopathy - Cardiac Cardiac: Regular Rate, Murmur Present, Radial strong equal, Pedal strong equal, Cap refill < 2 sec - Respiratory Respiratory: Clear to ausultation [place]. No: Distress, Labored - Abdomen Abdomen: Normal Bowel sounds. No: Tender to palpation - Derm Derm: Normal color, Warm and dry - Extremities Extremities: Normal. No: Deformity, Tenderness - Neuro Neuro: Alert and Oriented X 3, CNII-XII intact - GCS Eye Opening: Spontaneous Motor: Obeys Commands Verbal: Oriented Total: 15 Results - Vitals Vitals: Vital Signs - 24 hr 12/07/20 20:15 Temperature 36.6 C Heart Rate 83 Respiratory 18 Rate Blood Pressure 150/63 H O2 Saturation 97 Oxygen O2 Source Room air - EKG (time done) 2028 Rate: Rate (enter#) (83) Rhythm: NSR [place]: Normal Intervals: Normal ND QRS: Normal Ischemia: Normal ST segments Compare to prior EKG: Unchanged from prior EKG Computer interpretation: Agree with computer - Labs Labs: Laboratory Tests 12/07/20 12/07/20 12/07/20 20:43 20:43 20:43 WBC 8.0 RBC 4.25 Hgb 13.7 Hct 41.4 MCV 97.4 MCH 32.2 H MCHC 33.1 RDW 13.2 Plt Count 452 H MPV 9.1 Neut # (Auto) 5.5 Lymph # (Auto) 1.2 L [place] # (Auto) 0.9 Eos # (Auto) 0.4 Baso # (Auto) 0.1 Absolute Nucleated RBC 0.00 Nucleated RBC % 0.0 Sodium 137 Potassium 3.9 Chloride 101 Carbon Dioxide 25 Anion Gap 11.0 BUN 20 Creatinine 0.6 Estimated GFR (MDRD) 96 Glucose 104 H Calcium 9.6 Total Bilirubin 0.6 AST 19 ALT 17 Alkaline Phosphatase 64 Troponin I High Sens 4.9 Total Protein 7.6 Albumin 4.8 Globulin 2.8 Albumin/Globulin Ratio 1.7 Lipase 28 - Rads (name of study) CXR Radiology: Final report received (No acute cardiopulmonary process) PD MEDICAL DECISION MAKING - ED course Complexity details: reviewed results, re-evaluated patient, d/w patient, d/w family ED course: Full she has normal [id number] female presents emergency department for concern that she may have food stuck in her esophagus after eating salmon. She reports painful swallow and initially inability to control her secretions. [place] and swallow there is no drooling. Given her age screening labs and chest x-ray were completed. She has no worrisome electrolyte abnormality, negative troponin. EKG nonischemic. Chest x-ray without acute abnormality. Initially I did present her with some water which she was able to tolerate but she still felt like something was stuck in her esophagus. We then followed this with 2 mg of glucagon IV push about 15 minutes later she had full resolution of her symptoms. Patient is advised close follow-up with her primary care provider. Emergent return precautions discussed Departure - Departure Disposition: 01 Home, Self Care Clinical Impression: Impaired swallowing associated with throat pain Condition: Stable Record reviewed to determine appropriate education?: Yes Comments: Becky dunham were seen in the emergency department today for pain and difficulty swallowing after eating salmon. It is possible that there was a small amount of food still stuck in your esophagus. Here in the emergency department your chest x-ray, EKG and screening labs were all essentially normal. We did give you a medication called glucagon which in theory helps to relax the esophagus and get any trapped food down into the stomach. After you were given this medication you were able to swallow normally and felt much better. At this time you are stable for discharge home. Please discuss this ED visit with your primary care provider. If at any point you develop fevers, cannot swallow develop uncontrollable cough or feel short of air please return immediately to the ER for a second evaluation.
[2020-12-07 20:49] LABS: BASOPHILS # (AUTO) 0.1 10^3/uL (0.0-0.1); BASOPHILS % (AUTO) 0.9 %; EOSINOPHILS # (AUTO) 0.4 10^3/uL (0.0-0.7); EOSINOPHILS % (AUTO) 4.4 %; HCT - HEMATOCRIT 41.4 % (37.0-47.0); HGB - HEMOGLOBIN 13.7 g/dL (12.0-16.0); LYMPHOCYTES # (AUTO) 1.2 10^3/uL (1.5-3.5); LYMPHOCYTES % (AUTO) 14.7 %; MEAN CORPUSCULAR HEMOGLOBIN 32.2 pg (27.0-31.0); MEAN CORPUSCULAR HGB CONC 33.1 g/dL (32.0-36.0); MEAN CORPUSCULAR VOLUME 97.4 fL (81.0-99.0); MEAN PLATELET VOLUME 9.1 fL (7.9-10.8); MONOCYTES # (AUTO) 0.9 10^3/uL (0.0-1.0); MONOCYTES % (AUTO) 11.1 %; NEUTROPHILS # (AUTO) 5.5 10^3/uL (1.5-6.6); NEUTROPHILS % (AUTO) 68.5 %; PLT - PLATELET COUNT 452 10^3/uL (130-450); RED BLOOD COUNT 4.25 10^6/uL (4.20-5.40); RED CELL DISTRIBUTION WIDTH 13.2 % (12.0-15.0)
[2020-12-07] MEDS ORDERED: GLUCAGON 1 MG/ML VIAL IVP STA (20:49)
[2020-12-07 21:02] LABS: ALBUMIN 4.8 g/dL (3.2-5.5); ALBUMIN/GLOBULIN RATIO 1.7 (1.0-2.2); BILIRUBIN,TOTAL 0.6 mg/dL (0.2-1.0); CALCIUM 9.6 mg/dL (8.5-10.3); CREATININE 0.6 mg/dL (0.4-1.0); POTASSIUM 3.9 mmol/L (3.5-5.0); TOTAL PROTEIN 7.6 g/dL (6.7-8.2)
--- NOTE | 2020-12-07 21:05 | XRAY Report ---
PROCEDURE: Chest 1 View X-Ray INDICATIONS: Chest Pain TECHNIQUE: One view of the chest was acquired. COMPARISON: Chest x-ray report, 11/01/2011. FINDINGS: Surgical changes and devices: None. Lungs and pleura: No pleural effusions or pneumothorax. Lungs are clear. Mediastinum: Mediastinal contours appear normal. Heart size is normal. Bones and chest wall: No suspicious bony lesions. Overlying soft tissues appear unremarkable. IMPRESSION: No acute cardiopulmonary disease. Reviewed by: Nicolás Simmons MD on 12/07/2020 9:04 PM PDT Approved by: Nicolás Simmons MD on 12/07/2020 9:04 PM PDT Station ID: [id number]
[2020-12-07] MEDS ORDERED: ONDANSETRON 4 MG/2 ML VIAL IVP STA (21:22)
[2020-12-07 22:08] VITALS: BP 128/79
== END 2020-12-07 22:14 | disposition home or self-care (01) ==
LOC: EDSEX → EDUNIT# → SUPCPDRO 20:10 → ED 20:10
DX: R13.10 Dysphagia, unspecified (principal)
CPT/HCPCS: 36415; 80053; 83690; 83880; 84484; 85025; 93005; 96374; 96375; 99284

== ENCOUNTER 2021-06-22 08:00 | Outpatient (CLI) | payer MEDICARE ==
[2021-06-22 16:49] LABS: BASOPHILS # (AUTO) 0.1 10^3/uL (0.0-0.1); BASOPHILS % (AUTO) 0.7 %; EOSINOPHILS # (AUTO) 0.2 10^3/uL (0.0-0.7); EOSINOPHILS % (AUTO) 2.3 %; HCT - HEMATOCRIT 41.5 % (37.0-47.0); HGB - HEMOGLOBIN 13.3 g/dL (12.0-16.0); LYMPHOCYTES % (AUTO) 9.5 %; MEAN CORPUSCULAR HEMOGLOBIN 31.6 pg (27.0-31.0); MEAN CORPUSCULAR VOLUME 98.6 fL (81.0-99.0); MEAN PLATELET VOLUME 10.9 fL (7.9-10.8); MONOCYTES % (AUTO) 9.7 %; NEUTROPHILS # (AUTO) 7.7 10^3/uL (1.5-6.6); NEUTROPHILS % (AUTO) 77.2 %; PLT - PLATELET COUNT 416 10^3/uL (130-450); RED BLOOD COUNT 4.21 10^6/uL (4.20-5.40); RED CELL DISTRIBUTION WIDTH 14.3 % (12.0-15.0)
[2021-06-22 16:57] LABS: ALBUMIN 4.7 g/dL (3.2-5.5); ALBUMIN/GLOBULIN RATIO 1.6 (1.0-2.2); ALKALINE PHOSPHATASE 64 IU/L (42-121); ALT ALANINE AMINOTRANSFERASE 15 IU/L (10-60); AST ASPARTATE AMINOTRANSFERASE 17 IU/L (10-42); BILIRUBIN,TOTAL 0.6 mg/dL (0.2-1.0); BUN - BLOOD UREA NITROGEN 15 mg/dL (6-20); CALCIUM 9.7 mg/dL (8.5-10.3); CARBON DIOXIDE - CO2 25 mmol/L (21-32); CHLORIDE 100 mmol/L (101-111); CHOL/HDL RATIO 3.8 (<4.4); CHOLESTEROL 217 mg/dL; CREATININE 0.5 mg/dL (0.4-1.0); GFR - MDRD 118 (>89); GLUCOSE 92 mg/dL (70-100); HDL CHOLESTEROL 57 mg/dL; LDL CHOLESTEROL,CALCULATED 125 mg/dL; LDL/HDL RATIO 2.2 (<4.4); POTASSIUM 4.2 mmol/L (3.5-5.0); SODIUM 137 mmol/L (135-145); TOTAL PROTEIN 7.7 g/dL (6.7-8.2); TRIGLYCERIDES 177 mg/dL; VLDL CHOLESTEROL 35 mg/dL
[2021-06-22 17:01] LABS: CRP - C-REACTIVE PROTEIN < 1.0 mg/dL (0-1.0)
[2021-06-22 17:10] LABS: THYROID STIMULATING HORMONE 2.3 uIU/mL (0.34-5.60)
== END 2021-06-22 23:59 ==
LOC: LAB.R 08:00
PROVIDERS: ATTEND Internal Medicine
DX: Z00.00 Encounter for general adult medical examination without abnormal findings (principal); R10.9 Unspecified abdominal pain; F41.9 Anxiety disorder, unspecified; M25.50 Pain in unspecified joint; M79.18 Myalgia, other site; R09.89 Other specified symptoms and signs involving the circulatory and respiratory systems; R13.10 Dysphagia, unspecified; R60.9 Edema, unspecified; Z80.0 Family history of malignant neoplasm of digestive organs; R51.9 Headache, unspecified; M25.559 Pain in unspecified hip; E03.9 Hypothyroidism, unspecified; R59.1 Generalized enlarged lymph nodes; R11.0 Nausea; R20.0 Anesthesia of skin; H66.90 Otitis media, unspecified, unspecified ear; R20.2 Paresthesia of skin; R01.1 Cardiac murmur, unspecified; M19.90 Unspecified osteoarthritis, unspecified site; R07.81 Pleurodynia; M54.30 Sciatica, unspecified side; J32.9 Chronic sinusitis, unspecified; I83.90 Asymptomatic varicose veins of unspecified lower extremity; J38.2 Nodules of vocal cords
CPT/HCPCS: 80053; 80061; 82607; 83721; 84443; 85025; 85651; 86140

== ENCOUNTER 2022-06-18 16:30 | Outpatient (CLI) | payer MEDICARE | END 2022-06-18 16:31 | disposition short-term general hospital (02) | LOC: EMS 16:30 | DX: S49.92XA Unspecified injury of left shoulder and upper arm, initial encounter (principal); M54.2 Cervicalgia; M54.6 Pain in thoracic spine; S09.93XA Unspecified injury of face, initial encounter; W10.8XXA Fall (on) (from) other stairs and steps, initial encounter; Y93.01 Activity, walking, marching and hiking; Y92.830 Public park as the place of occurrence of the external cause | CPT/HCPCS: A0425; A0427 ==

== ENCOUNTER 2022-07-14 15:48 | Outpatient (CLI) | payer MEDICARE ==
--- NOTE | 2022-07-15 02:59 | CT Report ---
PROCEDURE: UPPER EXTREMITY WO - LT INDICATIONS: FRACTURE OF PROXIMAL END OF LEFT HUMERUS TECHNIQUE: Noncontrast 2 mm axial sections were acquired through the elbow joint, with coronal and sagittal refo rmats. For radiation dose reduction, the following was used: automated exposure control, adjustment of mA and/or kV according to patient size. COMPARISON: None. FINDINGS: Image quality: Excellent. Bones: There is a comminuted fracture of the left humeral head and neck. There is medial displacemen t and impaction of the shaft component by greater than 1 cm with lateral angulation. There is also di splacement of the lesser trochanter component by approximately 2 cm. Findings are suggestive of a Nee r 3 part fracture. There is partial callus formation demonstrated along the fracture fragments consis tent with a healing fracture. No dislocation of the glenohumeral joint. Soft tissues: There is a left glenohumeral joint effusion and periarticular soft tissue swelling. IMPRESSION: 1. Comminuted fracture of the left humeral head and neck compatible with a Neer 3 part fracture 2. Calcification demonstrated along the fracture fragments consistent with a nonacute fracture. Reviewed by: Anjel Almeida MD on 07/15/2022 2:58 AM PST Approved by: Anjel Almeida MD on 07/15/2022 2:58 AM PST Station ID: [id number]
== END 2022-07-14 15:49 | disposition home or self-care (01) ==
LOC: DI 15:48
PROVIDERS: ATTEND Orthopaedic Surgery
DX: S42.292A Other displaced fracture of upper end of left humerus, initial encounter for closed fracture (principal)

== ENCOUNTER 2022-08-15 04:05 | Outpatient (CLI) | payer MEDICARE | END 2022-08-15 23:59 | disposition EMS.NT | LOC: EMS 04:05 | DX: M79.622 Pain in left upper arm (principal) ==

== ENCOUNTER 2023-02-21 12:16 | Outpatient (CLI) | payer MEDICARE ==
[2023-02-21 12:33] LABS: BASOPHILS # (AUTO) 0.1 10^3/uL (0.0-0.1); BASOPHILS % (AUTO) 1.1 %; EOSINOPHILS # (AUTO) 0.4 10^3/uL (0.0-0.7); EOSINOPHILS % (AUTO) 5.5 %; HCT - HEMATOCRIT 40.5 % (37.0-47.0); HGB - HEMOGLOBIN 13.3 g/dL (12.0-16.0); LYMPHOCYTES % (AUTO) 15.4 %; MEAN CORPUSCULAR HEMOGLOBIN 29.4 pg (27.0-31.0); MEAN CORPUSCULAR HGB CONC 32.8 g/dL (32.0-36.0); MEAN CORPUSCULAR VOLUME 89.6 fL (81.0-99.0); MEAN PLATELET VOLUME 9.2 fL (7.9-10.8); MONOCYTES # (AUTO) 0.7 10^3/uL (0.0-1.0); NEUTROPHILS # (AUTO) 4.3 10^3/uL (1.5-6.6); NEUTROPHILS % (AUTO) 66.7 %; PLT - PLATELET COUNT 484 10^3/uL (130-450); RED BLOOD COUNT 4.52 10^6/uL (4.20-5.40); RED CELL DISTRIBUTION WIDTH 14.5 % (12.0-15.0); WHITE BLOOD COUNT 6.4 x10^3/uL (4.8-10.8)
[2023-02-21 12:59] LABS: ALBUMIN 4.6 g/dL (3.2-5.5); ALBUMIN/GLOBULIN RATIO 1.7 (1.0-2.2); BILIRUBIN,TOTAL 0.6 mg/dL (0.2-1.0); CREATININE 0.5 mg/dL (0.6-1.3); POTASSIUM 3.9 mmol/L (3.5-4.5); TOTAL PROTEIN 7.3 g/dL (6.4-8.9)
[2023-02-21 13:50] LABS: THYROID STIMULATING HORMONE 5.67 uIU/mL (0.34-5.60)
== END 2023-02-21 12:17 | disposition home or self-care (01) ==
LOC: LAB 12:16
PROVIDERS: ATTEND Internal Medicine
DX: Z79.899 Other long term (current) drug therapy (principal); R10.9 Unspecified abdominal pain; E03.9 Hypothyroidism, unspecified
CPT/HCPCS: 36415; 80053; 84443; 85025

== ENCOUNTER 2023-05-23 10:40 | Outpatient (CLI) | payer MEDICARE ==
[2023-05-23 10:57] LABS: BASOPHILS # (AUTO) 0.1 10^3/uL (0.0-0.1); BASOPHILS % (AUTO) 0.7 %; EOSINOPHILS # (AUTO) 0.4 10^3/uL (0.0-0.7); EOSINOPHILS % (AUTO) 3.9 %; HCT - HEMATOCRIT 40.1 % (37.0-47.0); HGB - HEMOGLOBIN 12.8 g/dL (12.0-16.0); LYMPHOCYTES # (AUTO) 0.9 10^3/uL (1.5-3.5); LYMPHOCYTES % (AUTO) 9.5 %; MEAN CORPUSCULAR HEMOGLOBIN 29.4 pg (27.0-31.0); MEAN CORPUSCULAR HGB CONC 31.9 g/dL (32.0-36.0); MEAN PLATELET VOLUME 9.3 fL (7.9-10.8); MONOCYTES # (AUTO) 0.9 10^3/uL (0.0-1.0); MONOCYTES % (AUTO) 9.6 %; NEUTROPHILS # (AUTO) 7.4 10^3/uL (1.5-6.6); NEUTROPHILS % (AUTO) 75.9 %; PLT - PLATELET COUNT 482 10^3/uL (130-450); RED BLOOD COUNT 4.36 10^6/uL (4.20-5.40); RED CELL DISTRIBUTION WIDTH 14.4 % (12.0-15.0); WHITE BLOOD COUNT 9.8 x10^3/uL (4.8-10.8)
== END 2023-05-23 10:41 | disposition home or self-care (01) ==
LOC: LAB 10:40
PROVIDERS: ATTEND Internal Medicine
DX: E03.9 Hypothyroidism, unspecified (principal); R79.89 Other specified abnormal findings of blood chemistry
CPT/HCPCS: 36415; 84443; 85025

== ENCOUNTER 2023-06-15 14:19 | Emergency (ER) | payer MEDICARE ==
[2023-06-15 15:02] LABS: BASOPHILS # (AUTO) 0.1 10^3/uL (0.0-0.1); BASOPHILS % (AUTO) 1.2 %; EOSINOPHILS # (AUTO) 0.2 10^3/uL (0.0-0.7); HCT - HEMATOCRIT 39.3 % (37.0-47.0); HGB - HEMOGLOBIN 12.7 g/dL (12.0-16.0); LYMPHOCYTES # (AUTO) 0.9 10^3/uL (1.5-3.5); LYMPHOCYTES % (AUTO) 12.9 %; MEAN CORPUSCULAR HEMOGLOBIN 29.7 pg (27.0-31.0); MEAN CORPUSCULAR HGB CONC 32.3 g/dL (32.0-36.0); MEAN PLATELET VOLUME 9.7 fL (7.9-10.8); MONOCYTES # (AUTO) 0.8 10^3/uL (0.0-1.0); MONOCYTES % (AUTO) 11.4 %; NEUTROPHILS # (AUTO) 4.8 10^3/uL (1.5-6.6); NEUTROPHILS % (AUTO) 71.1 %; PLT - PLATELET COUNT 461 10^3/uL (130-450); RED BLOOD COUNT 4.27 10^6/uL (4.20-5.40); RED CELL DISTRIBUTION WIDTH 14.1 % (12.0-15.0); WHITE BLOOD COUNT 6.8 x10^3/uL (4.8-10.8)
--- NOTE | 2023-06-15 15:16 | ED Physician Documentation ---
PD HPI CHEST PAIN - Stated complaint Stated Complaint: SOA,HEAVINESS,PX - Chief complaint Chief Complaint: Cardiac - History obtained from History obtained from: Patient - History of Present Illness Timing - onset: How many days ago (3) - Additional information Additional information: 83-year-old female with history of GERD and hypothyroid currently taking omepr azole and levothyroxine daily for this. Patient reports that she started to experience some chest heaviness and pressure about 3 days ago. She was informed to come to the emergency department or present to her primary care provider she called her primary care's office yesterday they advised her to go to the emergency department but she said that she had too many things to do and has her son's birthday. She says today her chest pressure actually feels better but wanted to come in just to err on the side of safety. She reports that the chest pressure is in her mid epigastric region there is nothing that makes it better or worse, she has had no recent upper respiratory infections or symptoms, she does say that the pain radiates to her left face/jaw but she also reports that she has chronic left face/jaw pain from a fall that she experienced about a year ago with multiple facial fractures. No vision changes no dizziness no shortness of breathI received report from Dr. Summers patient's oncologist. Patient was sent here from. Patient reports that she suspects that her chest pain she is experiencing is due to having a lot of recent losses in her life she recently lost her cat her is in memory care facility and the holidays are really hard time of year for her so she has been having a hard time at home lately. Denies any suicidal homicidal ideation. 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 PSYCHOLOGIST: Hysterectomy HEENT: Tonsil/Adenoidectomy - Present Medications Home Medications: Ambulatory Orders Medication Instructions Recorded Confirmed Acetaminophen [Tylenol] 2 tab PO DAILY 10/20/15 05/07/16 Levothyroxine [Synthroid] 1 tab PO DAILY 10/20/15 05/07/16 Aspirin 1 tab PO DAILY 05/07/16 05/07/16 Loratadine [Allergy Relief] 10 mg PO DAILY 11/11/17 Clindamycin HCl [Clindamycin 300MG 300 mg PO Q6H #40 capsule 09/16/18 CAP] predniSONE [Prednisone] 40 mg PO DAILY #10 tablet 09/24/18 Hydrocodone/Acetaminophen 1 - 2 tab PO Q6H PRN #15 tablet 01/17/20 [Hydrocodone-Acetamin 5-325 mg] - Allergies Allergies/Adverse Reactions: Allergies Allergy/AdvReac Type Severity Reaction Status Date / Time ciprofloxacin [From Cipro] Allergy Anaphylaxis Verified 01/17/20 13:26 ciprofloxacin HCl * Allergy Anaphylaxis Verified 01/17/20 13:26 [From Cipro] clindamycin Allergy Rash Verified 01/17/20 13:26 guaifenesin [From Robitussin] Allergy Hallucinati Verified 01/17/20 13:26 ons levofloxacin [From Levaquin] Allergy Anaphylaxis Verified 01/17/20 13:26 oxycodone Allergy Hives Verified 06/15/23 14:27 Penicillins Allergy Edema Verified 01/17/20 13:26 procaine HCl * Allergy Unknown Verified 01/17/20 13:26 [From Novocain] vitamin E (d-alpha Allergy Unknown Verified 01/17/20 13:26 tocopherol) [vitamin E] - Social History Does the pt smoke?: No Smoking Status: Never smoker Does the pt drink ETOH?: No Does the pt have substance abuse?: No - Immunizations Immunizations are current?: No Immunizations: TDAP >10years/unknown - POLST Patient has POLST: No PD ED PE NORMAL - Vitals Vital signs reviewed: Yes - General General: Alert and oriented X 3 - Neck Neck: No JVD, No bruit - Cardiac Cardiac: RRR. No: No murmur Results - Vitals Vitals: Vital Signs - 24 hr 06/15/23 06/15/23 06/15/23 14:25 14:27 16:30 Temperature 36.2 C L 36.5 C Heart Rate 77 77 66 Respiratory 16 16 18 Rate Blood Pressure 168/56 H 168/56 H 124/51 L O2 Saturation 98 98 99 06/15/23 17:04 Temperature 36.5 C Heart Rate 62 Respiratory 16 Rate Blood Pressure 122/50 L O2 Saturation 100 Oxygen O2 Source Room air - EKG (time done) 1431 EKG releavant findings:: EKG personally interpreted by author of this note. Relevant findings are: Rate: Rate (enter#) Rhythm: NSR [place]: Normal Intervals: Normal AR QRS: Normal Ischemia: Normal ST segments Compare to prior EKG: Old EKG unavailable - Labs Labs: Laboratory Tests 06/15/23 06/15/23 14:55 14:55 WBC 6.8 RBC 4.27 Hgb 12.7 Hct 39.3 MCV 92.0 MCH 29.7 MCHC 32.3 RDW 14.1 Plt Count 461 H MPV 9.7 Neut # (Auto) 4.8 Lymph # (Auto) 0.9 L [place] # (Auto) 0.8 Eos # (Auto) 0.2 Baso # (Auto) 0.1 Absolute Nucleated RBC 0.00 Nucleated RBC % 0.0 Sodium 136 Potassium 3.9 Chloride 102 Carbon Dioxide 26 Anion Gap 8.0 BUN 14 Creatinine 0.6 Estimated GFR (MDRD) 95 Glucose 143 H Calcium 9.9 Total Bilirubin 0.5 AST 13 ALT 10 Alkaline Phosphatase 84 Troponin I High Sens 3.0 Total Protein 7.1 Albumin 4.4 Globulin 2.7 Albumin/Globulin Ratio 1.6 Lipase 21 - Rads (name of study) chest xray Relevant Findings:: Final report received (Chest x-ray does not reveal any cardiopulmonary abnormalities or acute findings.), EMP independent interpretation of test PD Medical Decision Making - ED course ED course: 83-year-old female presents the emergency department today for 3 days of chest heaviness, patient reports today she has been actually feeling significantly better today and feels like her chest heaviness/pressure has almost entirely resolved. Troponins were complete which were within normal limits, platelet count is elevated at 461 otherwise normal CBC. Chemistry is overall unremarkable glucose slightly elevated at 143. Chest x-ray does not show any cardiopulmonary abnormalities or findings. Heart score is 4 given the patient's chest pain is almost fully resolved and her initial workup is unremarkable at this time I believe that it is safe to discharge patient to home. Patient is told to follow-up with her primary care provider next week And given strict return precautions to the emergency department. Departure - Departure Disposition: Home, Self Care Clinical Impression: Chest pain Qualifiers: Chest pain type: unspecified Qualified Code(s): R07.9 - Chest pain, unspecified Condition: Good Instructions: ED Chest Pain Atypical Unkn Cause Comments: Thank you for trusting us with your care your ER workup is overall unremarkable there are no findings of an active heart attack that were able to identify. If going home the chest pain comes back 3 having any other worsening symptoms such as shortness of breath nausea vomiting, vision changes, dizziness, jaw pain, arm pain or any other concerning symptoms please come back to the emergency department. Please follow-up with your primary care provider within a week for further evaluation and update them about your emergency department visit. Forms: PCP List Discharge Date/Time: 06/15/23 17:00
[2023-06-15 15:18] LABS: ALBUMIN 4.4 g/dL (3.2-5.5); ALBUMIN/GLOBULIN RATIO 1.6 (1.0-2.2); BILIRUBIN,TOTAL 0.5 mg/dL (0.2-1.0); CALCIUM 9.9 mg/dL (8.5-10.3); CREATININE 0.6 mg/dL (0.6-1.3); POTASSIUM 3.9 mmol/L (3.5-4.5); TOTAL PROTEIN 7.1 g/dL (6.4-8.9)
--- NOTE | 2023-06-15 15:31 | XRAY Report ---
PROCEDURE: Chest 1V INDICATIONS: Chest pain TECHNIQUE: One view of the chest was acquired. COMPARISON: 12/07/2020 similar study. FINDINGS: Surgical changes and devices: Prior left shoulder arthroplasty. Lungs and pleura: No pleural effusions or pneumothorax. Lungs are clear. Mediastinum: Mediastinal contours appear normal. Heart size is normal. Bones and chest wall: No suspicious bony lesions. Overlying soft tissues appear unremarkable. IMPRESSION: No acute cardiopulmonary process. Source of chest pain is not seen. Reviewed by: Jerome Rodriguez MD on 06/15/2023 3:30 PM PST Approved by: Jerome Rodriguez MD on 06/15/2023 3:30 PM PST Station ID: [id number]
[2023-06-15 17:10] VITALS: BP 122/50; O2SAT 100
== END 2023-06-15 17:00 | disposition home or self-care (01) ==
LOC: ED 14:19
DX: R07.9 Chest pain, unspecified (principal)
CPT/HCPCS: 36415; 80053; 83690; 84484; 85025; 93005; 99283; 99284

== ENCOUNTER 2023-07-20 12:08 | Emergency (ER) | payer MEDICARE ==
[2023-07-20 12:55] LABS: BASOPHILS # (AUTO) 0.1 10^3/uL (0.0-0.1); EOSINOPHILS # (AUTO) 0.3 10^3/uL (0.0-0.7); EOSINOPHILS % (AUTO) 3.5 %; HCT - HEMATOCRIT 40.2 % (37.0-47.0); HGB - HEMOGLOBIN 12.9 g/dL (12.0-16.0); LYMPHOCYTES # (AUTO) 0.9 10^3/uL (1.5-3.5); LYMPHOCYTES % (AUTO) 11.1 %; MEAN CORPUSCULAR HEMOGLOBIN 29.1 pg (27.0-31.0); MEAN CORPUSCULAR HGB CONC 32.1 g/dL (32.0-36.0); MEAN CORPUSCULAR VOLUME 90.7 fL (81.0-99.0); MEAN PLATELET VOLUME 9.4 fL (7.9-10.8); MONOCYTES # (AUTO) 0.8 10^3/uL (0.0-1.0); MONOCYTES % (AUTO) 10.6 %; NEUTROPHILS # (AUTO) 5.6 10^3/uL (1.5-6.6); NEUTROPHILS % (AUTO) 73.4 %; PLT - PLATELET COUNT 489 10^3/uL (130-450); RED BLOOD COUNT 4.43 10^6/uL (4.20-5.40); RED CELL DISTRIBUTION WIDTH 13.6 % (12.0-15.0); WHITE BLOOD COUNT 7.6 x10^3/uL (4.8-10.8)
[2023-07-20 13:07] LABS: ALBUMIN 4.6 g/dL (3.2-5.5); ALBUMIN/GLOBULIN RATIO 1.6 (1.0-2.2); BILIRUBIN,TOTAL 0.4 mg/dL (0.2-1.0); CALCIUM 10.3 mg/dL (8.5-10.3); CREATININE 0.6 mg/dL (0.6-1.3); TOTAL PROTEIN 7.4 g/dL (6.4-8.9)
--- NOTE | 2023-07-20 13:12 | CT Report ---
PROCEDURE: Head WO INDICATIONS: headache/dizzy TECHNIQUE: Noncontrast 4.5 mm thick angled axial sections acquired from the foramen magnum to the vertex. For r adiation dose reduction, the following was used: automated exposure control, adjustment of mA and/or kV according to patient size. COMPARISON: None. FINDINGS: Image quality: Excellent. CSF spaces: Basal cisterns are patent. No extra-axial fluid collections. Ventricles are normal in size and shape. Brain: No midline shift. No intracranial masses or hemorrhage. Cohen-white matter interface is norm al. Skull and face: Calvarium and visualized facial bones are intact, without suspicious lesions. Sinuses: Visualized sinuses and mastoids are clear. IMPRESSION: No acute intracranial pathology. Reviewed by: Jl Merchant MD on 07/20/2023 1:10 PM [facility] [[email or web address]] Approved by: Jl Merchant MD on 07/20/2023 1:10 PM [facility] [[email or web address]] Station ID: [id number]
[2023-07-20] MEDS: SODIUM CHLORIDE 0.9% 1,000 ML IV STA (13:45)
[2023-07-20] MEDS: ACETAMINOPHEN 325 MG TABLET PO STA ×2 (13:53→13:55)
--- NOTE | 2023-07-20 14:17 | ED Physician Documentation ---
PD HPI HEADACHE - Stated complaint Stated Complaint: BLURRY VISION,DIZZINESS,PEDRO - Chief complaint Chief Complaint: Neuro - History obtained from History obtained from: Patient - Additional information Additional information: Patient is an 83-year-old female Presenting for evaluation of headache, dizziness and at times blurred vision. Patient states that she had a head injury a year ago while walking at [employer] and was taken to [facility]. She had workup including head CT at that time that was negative. Since that time she has had frequent headaches including feeling dizzy at times and sometimes having blurriness in the left eye. She did take Tylenol last night. She reports feeling like her symptoms have been more constant for the past 3 days. Nothing makes them better or worse. She has not really ever talked to her doctor about her frequent headaches or symptoms since her head injury. Does not take a blood thinner or aspirin. Says her headache today feels similar to the headache she has been getting over the course of the last year. Denies vertigo. No chest pain. No difficulty breathing. No abdominal symptoms. No vomiting. No extremity weakness. 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: Hysterectomy HEENT: Tonsil/Adenoidectomy - Present Medications Home Medications: Ambulatory Orders Medication Instructions Recorded Confirmed Acetaminophen [Tylenol] 2 tab PO DAILY 10/20/15 05/07/16 Levothyroxine [Synthroid] 1 tab PO DAILY 10/20/15 05/07/16 Aspirin 1 tab PO DAILY 05/07/16 05/07/16 Loratadine [Allergy Relief] 10 mg PO DAILY 11/11/17 Clindamycin HCl [Clindamycin 300MG 300 mg PO Q6H #40 capsule 09/16/18 CAP] predniSONE [Prednisone] 40 mg PO DAILY #10 tablet 09/24/18 Hydrocodone/Acetaminophen 1 - 2 tab PO Q6H PRN #15 tablet 08/08/20 [Hydrocodone-Acetamin 5-325 mg] - Allergies Allergies/Adverse Reactions: Allergies Allergy/AdvReac Type Severity Reaction Status Date / Time ciprofloxacin [From Cipro] Allergy Anaphylaxis Verified 07/20/23 12:19 ciprofloxacin HCl * Allergy Anaphylaxis Verified 07/20/23 12:19 [From Cipro] clindamycin Allergy Rash Verified 07/20/23 12:19 guaifenesin [From Robitussin] Allergy Hallucinati Verified 07/20/23 12:19 ons levofloxacin [From Levaquin] Allergy Anaphylaxis Verified 07/20/23 12:19 oxycodone Allergy Hives Verified 07/20/23 12:19 Penicillins Allergy Edema Verified 07/20/23 12:19 procaine HCl * Allergy Unknown Verified 07/20/23 12:19 [From Novocain] vitamin E (d-alpha Allergy Unknown Verified 07/20/23 12:19 tocopherol) [vitamin E] - Social History Does the pt smoke?: No Smoking Status: Never smoker Does the pt drink ETOH?: No Does the pt have substance abuse?: No - Immunizations Immunizations are current?: No Immunizations: TDAP >10years/unknown - POLST Patient has POLST: No PD ED PE NORMAL - General General: Alert and oriented X 3, No acute distress, Well developed/nourished - HEENT HEENT: Atraumatic, PERRL, EOMI, Moist mucous membranes, Pharynx benign - Neck Neck: Supple, no meningeal sign - Cardiac Cardiac: RRR, Strong equal pulses - Respiratory Respiratory: No respiratory distress, Clear bilaterally - Abdomen Abdomen: Soft, Non tender, Non distended - Derm Derm: Warm and dry - Extremities Extremities: No deformity, No edema - Neuro Neuro: Alert and oriented X 3, 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 Relevant findings are: Rate 72, normal sinus rhythm, no STEMI, QTc 451 - Labs Labs: Laboratory Tests 07/20/23 07/20/23 12:48 12:48 WBC 7.6 RBC 4.43 Hgb 12.9 Hct 40.2 MCV 90.7 MCH 29.1 MCHC 32.1 RDW 13.6 Plt Count 489 H MPV 9.4 Neut # (Auto) 5.6 Lymph # (Auto) 0.9 L [place] # (Auto) 0.8 Eos # (Auto) 0.3 Baso # (Auto) 0.1 Absolute Nucleated RBC 0.00 Nucleated RBC % 0.0 Sodium 137 Potassium 4.0 Chloride 102 Carbon Dioxide 27 Anion Gap 8.0 BUN 15 Creatinine 0.6 Estimated GFR (MDRD) 95 Glucose 92 Calcium 10.3 Total Bilirubin 0.4 AST 12 ALT 9 L Alkaline Phosphatase 89 Total Protein 7.4 Albumin 4.6 Globulin 2.8 Albumin/Globulin Ratio 1.6 PD Medical Decision Making - ED course Complexity details: reviewed results, re-evaluated patient, d/w patient ED course: Patient is an 83-year-old female presenting for evaluation of headache, intermi ttent episodes of feeling dizzy and blurriness to the left eye which have been ongoing for the last year since she sustained a head injury. Here her neuroexam appears normal. She denies any issues with her vision here. She is ambulatory and there are no other focal deficits noted. She does not take a blood thinner. CT head was obtained which I reviewed I see no signs of intracranial hemorrhag e. EKG shows sinus rhythm. CBC and chemistries are unrevealing. She is feeling better after IV fluids and Tylenol with no pain. Patient counseled on need for close follow-up with her primary care given the duration of her symptoms. She is counseled on concerning symptoms to return for. Departure - Departure Disposition: 01 Home, Self Care Clinical Impression: Headache Condition: Stable Instructions: Concussion [place], ED Concussion, ED Cephalgia Unspecified Comments: The CT scan of your head today does not show signs of bleeding in your brain. You also do not have other symptoms to suggest a stroke. Your labs including electrolytes are normal. You are feeling better here after IV fluids and acetaminophen. I would recommend close follow-up with your primary care provider given how long your symptoms have been ongoing since your head injury. Return to the ER with any worsening. Forms: PCP List Discharge Date/Time: 07/20/23 15:03
[2023-07-20 14:57] VITALS: BP 147/56; O2SAT 97
== END 2023-07-20 15:03 | disposition home or self-care (01) ==
LOC: ED 12:08
DX: R51.9 Headache, unspecified (principal)
CPT/HCPCS: 36415; 70450; 80053; 85025; 93005; 99284; A9270

== ENCOUNTER 2023-08-01 16:11 | Emergency (ER) | payer MEDICARE ==
[2023-08-01 16:38] VITALS: O2SAT 97
--- NOTE | 2023-08-01 18:54 | Ultrasound Report ---
PROCEDURE: Duplex Ext Veins Right INDICATIONS: RLE swelling, pain TECHNIQUE: Real-time imaging, as well as color and pulse Doppler interrogation, were performed of the lower extr emity deep veins from the inguinal ligament to the popliteal fossa. Attempted visualization of the ca lf veins was performed. COMPARISON: None. FINDINGS: The deep veins are normally compressible, and free of intraluminal thrombus. Color and pu lse Doppler demonstrate normal phasic intraluminal flow. There is normal augmentation response to di stal compression maneuver. Thrombosis of a superficial calf vein. Small knee joint effusion. IMPRESSION: No deep venous thrombosis of the visualized lower extremity. Thrombosis of a superficial calf vein. Small knee joint effusion. Reviewed by: Jl Merchant MD on 08/01/2023 6:52 PM PST Approved by: Jl Merchant MD on 08/01/2023 6:52 PM PST Station ID: [id number]
--- NOTE | 2023-08-01 19:21 | ED Physician Documentation ---
History of Present Illness - Stated complaint Stated Complaint: R LEG PX - Chief complaint Chief Complaint: Ext Problem - Additonal information Additional information: 83-year-old female presents emergency department for right lower extremity pain and swelling. Patient reports that she remembers hitting the back of her leg on the table at one of her medical appointments and has been having increased pain to her posterior right lower extremity since then. She has had mild increased lower extremity swelling she was originally went to urgent care for pain and swelling they were worried about a DVT which [facility] There is a red bump on the back of her leg that she reports is very painful with any palpation. 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 HEENT: Tonsil/Adenoidectomy - Present Medications Home Medications: Ambulatory Orders Medication Instructions Recorded Confirmed Acetaminophen [Tylenol] 2 tab PO DAILY 10/20/15 05/07/16 Levothyroxine [Synthroid] 1 tab PO DAILY 10/20/15 05/07/16 Aspirin 1 tab PO DAILY 05/07/16 05/07/16 Loratadine [Allergy Relief] 10 mg PO DAILY 11/11/17 Clindamycin HCl [Clindamycin 300MG 300 mg PO Q6H #40 capsule 09/16/18 CAP] predniSONE [Prednisone] 40 mg PO DAILY #10 tablet 09/24/18 Hydrocodone/Acetaminophen 1 - 2 tab PO Q6H PRN #15 tablet 01/17/20 [Hydrocodone-Acetamin 5-325 mg] - Allergies Allergies/Adverse Reactions: Allergies Allergy/AdvReac Type Severity Reaction Status Date / Time ciprofloxacin [From Cipro] Allergy Anaphylaxis Verified 08/01/23 16:29 ciprofloxacin HCl * Allergy Anaphylaxis Verified 08/01/23 16:29 [From Cipro] clindamycin Allergy Rash Verified 08/01/23 16:29 guaifenesin [From Robitussin] Allergy Hallucinati Verified 08/01/23 16:29 ons levofloxacin [From Levaquin] Allergy Anaphylaxis Verified 08/01/23 16:29 oxycodone Allergy Hives Verified 08/01/23 16:29 Penicillins Allergy Edema Verified 08/01/23 16:29 procaine HCl * Allergy Unknown Verified 08/01/23 16:29 [From Novocain] vitamin E (d-alpha Allergy Unknown Verified 08/01/23 16:29 tocopherol) [vitamin E] - Social History Does the pt smoke?: No Smoking Status: Never smoker Does the pt drink ETOH?: No Does the pt have substance abuse?: No - Immunizations Immunizations are current?: No Immunizations: TDAP >10years/unknown - POLST Patient has POLST: No PD ED PE NORMAL - Vitals Vital signs reviewed: Yes - General General: Alert and oriented X 3 - HEENT HEENT: Atraumatic - Neck Neck: Supple, no meningeal sign - Cardiac Cardiac: RRR, No gallop, Strong equal pulses - Respiratory Respiratory: No respiratory distress, Clear bilaterally - Derm Derm: Other (Posterior right lower extremity localized erythema and small hematoma) - Extremities Extremities: Other (RLE: mild non pitting edema with mild erythema, calf tenderness) - Neuro Neuro: Alert and oriented X 3 - Psych Psych: Normal mood Results - Vitals Vitals: Vital Signs - 24 hr 08/01/23 08/01/23 08/01/23 16:24 16:28 19:47 Temperature 37.1 C Heart Rate 86 86 76 Respiratory 16 16 15 Rate Blood Pressure 101/76 101/76 145/56 H O2 Saturation 97 97 97 Oxygen O2 Source Room air - Rads (name of study) Right lower extremity venous duplex Relevant Findings:: Final report received, EMP independent interpretation of test PD Medical Decision Making - ED course ED course: 83-year-old female presents emergency department for right lower extremity swelling. Venous duplex was complete and there is no deep venous thrombosis to the right lower extremity. She does have a thrombosis of the superficial calf vein this is over the spot that she is having tenderness where she hit her leg about a week ago. There is also small knee joint effusion she does not endorsing any knee pain. Patient told there is no interventions warranted at t his time. I do not believe that she has any signs or symptoms of cellulitis of the right lower extremity. She was told to continue to wear her stockings that she has on to help with compression and keep leg elevated and told apply heat to help with any pain or discomfort as well as Tylenol and ibuprofen. She is also told to follow-up with her primary care provider and she was given strict ER re turn precautions. Departure - Departure Disposition: 01 Home, Self Care Clinical Impression: Acute superficial venous thrombosis of lower extremity Qualifiers: Laterality: right Qualified Code(s): I82.811 - Embolism and thrombosis of superficial veins of right lower extremity Instructions: ED Phlebitis Superficial Comments: Thank you for trusting us with your care we have completed an ultrasound of your right lower extremity and found that you have a superficial venous thrombosis. As we discussed there is nothing to do about this continue to wear your LUCY hose as you have been doing to help with compression you can apply ice and heat to it 20 minutes at a time of each leg elevated above your heart when able to. Please come back to the emergency department if you have any worsening pain shortness of breath worsening Swelling. You can also take Tylenol or ibuprofen for any pain or discomfort if cleared by her primary care provider. Wishing you a speedy recovery. Forms: PCP List Discharge Date/Time: 08/01/23 19:48
[2023-08-01 19:54] VITALS: BP 145/56
== END 2023-08-01 19:48 | disposition home or self-care (01) ==
LOC: ED 16:11
DX: I82.811 Embolism and thrombosis of superficial veins of right lower extremity (principal); E03.9 Hypothyroidism, unspecified; Z79.899 Other long term (current) drug therapy
CPT/HCPCS: 99283; 99284

== ENCOUNTER 2023-10-25 13:42 | Outpatient (CLI) | payer MEDICARE ==
[2023-10-25] MEDS ORDERED: DIATRIZOATE MEGLU/DIATRIZO SOD 30 ML BOTTLE PO ONE (14:01)
[2023-10-25] MEDS ORDERED: iohexoL-300 100 ML VIAL ONE (14:01)
[2023-10-25 15:02] LABS: CREATININE 0.7 mg/dL (0.6-1.3)
--- NOTE | 2023-10-25 16:05 | CT Report ---
PROCEDURE: Abdomen/Pelvis W INDICATIONS: ABD PAIN CONTRAST: Omni 300 100ml TECHNIQUE: After the administration of intravenous contrast, a CT scan of the abdomen and pelvis was performed. Images were recorded and evaluated at appropriate window settings. Reformats: coronal and sagittal. F or radiation dose reduction, the following was used: automated exposure control, adjustment of mA and /or kV according to patient size. COMPARISON: CT abdomen pelvis 11/11/2017. FINDINGS: Image quality: Diagnostic. Lower chest: Bibasilar atelectasis or scarring. Small hiatal hernia. Liver: No solid mass. Gallbladder: No radiopaque stones or wall thickening. Biliary tree: No intrahepatic or extrahepatic dilation, accounting for age. Spleen: No splenomegaly. Pancreas: No pancreatic ductal dilation. Adrenals: No adrenal nodule. Kidneys and ureters: No hydronephrosis. No renal cystic lesion which requires follow up. No solid mas s. Stomach, bowel and peritoneum: No gastric or small bowel dilation. No abnormal wall thickening. No pa thologic free fluid. Lymph nodes: No central or retroperitoneal adenopathy. Vessels: No infrarenal aortic aneurysm. Patent portal vein. PELVIS Reproductive organs: Surgically absent. Bladder: No abnormal wall thickening, accounting for underdistention. Pelvic lymph nodes: No pelvic adenopathy by size criteria. Bones: No aggressive osseous abnormality. Other: No significant ventral or inguinal hernia. IMPRESSION: Stable small hiatal hernia. No acute abdominopelvic process. Reviewed by: Emiliana Milian MD, PhD on 10/25/2023 4:03 PM PDT Approved by: Emiliana Milian MD, PhD on 10/25/2023 4:03 PM PDT Station ID: [id number]
[2023-10-25] MEDS: iohexoL-300 100 ML VIAL IVP ONE (16:27)
[2023-10-25] MEDS: DIATRIZOATE MEGLU/DIATRIZO SOD 30 ML BOTTLE PO ONE (16:27)
== END 2023-10-25 13:43 | disposition home or self-care (01) ==
LOC: LAB 13:42
PROVIDERS: ATTEND Internal Medicine
DX: R10.9 Unspecified abdominal pain (principal); R13.10 Dysphagia, unspecified; K22.2 Esophageal obstruction; Z79.899 Other long term (current) drug therapy; K44.9 Diaphragmatic hernia without obstruction or gangrene
CPT/HCPCS: 36415; 74177; 82565; Q9963; Q9967

== ENCOUNTER 2024-01-11 14:37 | Outpatient (CLI) | payer MEDICARE ==
[2024-01-11 15:20] LABS: CK- CREATINE KINASE 40 IU/L (30-223); CRP - C-REACTIVE PROTEIN < 0.5 mg/dL (<0.5)
[2024-01-11 15:24] LABS: THYROID STIMULATING HORMONE 1.91 uIU/mL (0.34-5.60)
[2024-01-11 15:51] LABS: RHEUMATOID FACTOR NEGATIVE (Negative)
[2024-01-11 20:09] LABS: ESTIMATED AVERAGE GLUCOSE 120 mg/dL (70-100); HEMOGLOBIN A1c% 5.8 % (4.27-6.07)
[2024-01-13 16:07] LABS: ANTINUCLEAR ANTIBODIES IFA Negative (.)
== END 2024-01-11 14:38 | disposition home or self-care (01) ==
LOC: LAB 14:37
PROVIDERS: ATTEND Internal Medicine
DX: G62.9 Polyneuropathy, unspecified (principal)
CPT/HCPCS: 36415; 81599; 82550; 82607; 83036; 84443; 85651; 86038; 86140; 86200; 86430